=== PATIENT | male | born 1950 | race Caucasian/White ===

== ENCOUNTER 2024-04-17 01:31 | Inpatient (IN) | payer MEDICARE, OTHER ==
[~2024-04-17] VITALS: Ht 175.3 cm; Wt 97.1 kg
[2024-04-17] VITALS (7 sets, daily range): BP systolic 129–137; BP diastolic 70–78; PULSE 87–99; RESP 13–26; TEMP 97.5–97.6; O2SAT 94–97
[~2024-04-17 01:31] MED LIST: AMLO-139 PO; ATOR-429 PO; ELEMENTAL IRON; OMEP40CA21 PO
[2024-04-17 01:55] LABS: BASOPHILS # (AUTO) 0.1 X10'3 (0-0.2); BASOPHILS % (AUTO) 0.6 % (0-1); EOSINOPHILS # (AUTO) 0.1 X10'3 (0-0.9); HEMATOCRIT 38.4 % (42.0-52.0); HEMOGLOBIN 12.5 g/dl (14.0-17.9); LYMPHOCYTES # (AUTO) 1.9 X10'3 (1.1-4.8); LYMPHOCYTES % (AUTO) 18.1 % (21-51); MEAN CORPUSCULAR HEMOGLOBIN 30.3 PG (27.0-31.0); MEAN CORPUSCULAR HGB CONC 32.5 g/dL (33.0-36.5); MEAN CORPUSCULAR VOLUME 93.4 FL (78-98); MEAN PLATELET VOLUME 7.1 FL (7.4-10.4); MONOCYTES % (AUTO) 9.8 % (2-12); NEUTROPHILS # (AUTO) 7.3 X10'3 (1.8-7.7); NEUTROPHILS % (AUTO) 70.5 % (42-75); PLATELET COUNT 367 X10'3 (140-440); RED BLOOD COUNT 4.11 X10'6 (4.70-6.10); RED CELL DISTRIBUTION WIDTH 13.5 % (11.5-14.5); WHITE BLOOD COUNT 10.3 X10'3 (4.5-11.0)
[2024-04-17 02:12] LABS: ALANINE AMINOTRANSFERASE 17 U/L (12-78); ALBUMIN 2.6 G/DL (3.4-5.0); ALBUMIN/GLOBULIN RATIO 0.7 (1.1-1.5); ALKALINE PHOSPHATASE 189 IU/L (46-116); ANION GAP 8 (8-16); ASPARTATE AMINO TRANSFERASE 29 U/L (10-37); BILIRUBIN,TOTAL 0.6 MG/DL (0.1-1.0); BLOOD UREA NITROGEN 22 MG/DL (7-18); BUN/CREATININE RATIO 24.4 (10.0-20.0); CALCIUM 9.1 MG/DL (8.5-10.1); CHLORIDE 101 MMOL/L (99-107); GLUCOSE 113 MG/DL (70-104); POTASSIUM 4.3 MMOL/L (3.5-5.1); SODIUM 135 MMOL/L (135-145); TOTAL CARBON DIOXIDE 26.1 MMOL/L (24-32); TOTAL PROTEIN 6.4 G/DL (6.4-8.2); eCRCL 70 ML/MIN; eGFR 82 ML/MIN
[2024-04-17 02:19] LABS: PRO BRAIN NATRIURETIC PEPTIDE 86 PG/ML (0-450)
[2024-04-17] MEDS: methylPREDNISolone sod succ 125mg/2ml vial IV ONE (02:53)
[2024-04-17] MEDS: CefTRIAXone/D5W-Rocephin 1gm 50 ML IV ONE (03:07)
[2024-04-17] MEDS: ondansetron/PF 4mg/2ml inj IV ONE (03:23)
[2024-04-17] MEDS: azithromycin/NS 500mg/250ml 250 ML IV ONE (03:23)
[2024-04-17] MEDS: ipratropium/albuterol 3ml nebule NEB ONE (03:40)
[2024-04-17] MEDS ORDERED: AMLO-140 PO (05:50)
[2024-04-17] MEDS: normal saline 1000ml 1,000 ML IV ONE (05:52)
[2024-04-17] MEDS ORDERED: magnesium Cl slow-release 64mg tablet PO PRN (05:55)
[2024-04-17] MEDS ORDERED: albuterol 2.5 MG/3 ML nebule NEB PRN (05:55)
[2024-04-17] MEDS ORDERED: magnesium sulf-water 4G/100mL 100 ML IV PRN (05:55)
[2024-04-17] MEDS ORDERED: acetaminophen 325mg tablet PO PRN ×2 (05:55)
[2024-04-17] MEDS ORDERED: magnesium hydroxide 30ml (MOM) UD suspension PO PRN (05:55)
[2024-04-17] MEDS ORDERED: mag hydrox/Alum hydrox/simeth 30ml oral suspension PO PRN (05:55)
[2024-04-17] MEDS ORDERED: HYDROcodone/acetaminophen 10/325mg tab PO PRN (05:55)
[2024-04-17] MEDS ORDERED: magnesium sulf-water 2g/50mL 50 ML IV PRN (05:55)
[2024-04-17] MEDS ORDERED: potassium Cl 20 mEq SR tablet PO PRN ×2 (05:55)
[2024-04-17] MEDS ORDERED: potassium Cl 40MEQ/1/2NS 520ml 520 ML IV PRN (05:55)
[2024-04-17] MEDS: MEROPENEM 1GM/NACL 50ML IVPB 50 ML IV SCH (07:41)
[2024-04-17] MEDS: K and/or MAG REPLACEMENT MC SCH (07:43)
[2024-04-17] MEDS: normal saline 1000ml 1,000 ML IV SCH (08:13)
[2024-04-17 08:28] LABS: APTT 24 SECONDS (22-32); INR 1.1 INR; PROTHROMBIN TIME 11.4 SECONDS (9.0-12.0)
[2024-04-17] MEDS: furosemide 10 MG/1 ML 10ml inj IV ONE (10:59)
[2024-04-17] MEDS: metoclopramide 5 mg/ml inj IV ONE (11:35)
[2024-04-17] MEDS: ipratropium/albuterol 3ml nebule NEB PRN (13:59)
[2024-04-17] MEDS: enoxaparin 40mg/0.4ml syringe SQ SCH (20:17)
[2024-04-18] VITALS (11 sets, daily range): BP systolic 128–146; BP diastolic 68–85; PULSE 81–97; RESP 16–25; TEMP 97.1–98.2; O2SAT 93–98
[2024-04-18] MEDS: MEROPENEM 1GM/NACL 50ML IVPB 50 ML IV SCH (03:19)
[2024-04-18 09:30] LABS: BASOPHILS % (AUTO) 0.1 % (0-1); EOSINOPHILS % (AUTO) 0.2 % (0-6); HEMATOCRIT 34.9 % (42.0-52.0); HEMOGLOBIN 11.5 g/dl (14.0-17.9); LYMPHOCYTES # (AUTO) 0.9 X10'3 (1.1-4.8); LYMPHOCYTES % (AUTO) 6.4 % (21-51); MEAN CORPUSCULAR HEMOGLOBIN 30.4 PG (27.0-31.0); MEAN CORPUSCULAR HGB CONC 32.8 g/dL (33.0-36.5); MEAN CORPUSCULAR VOLUME 92.7 FL (78-98); MEAN PLATELET VOLUME 7.1 FL (7.4-10.4); MONOCYTES # (AUTO) 1.1 X10'3 (0-0.9); MONOCYTES % (AUTO) 7.9 % (2-12); NEUTROPHILS # (AUTO) 11.8 X10'3 (1.8-7.7); NEUTROPHILS % (AUTO) 85.4 % (42-75); PLATELET COUNT 354 X10'3 (140-440); RED BLOOD COUNT 3.76 X10'6 (4.70-6.10); RED CELL DISTRIBUTION WIDTH 13.4 % (11.5-14.5); WHITE BLOOD COUNT 13.8 X10'3 (4.5-11.0)
[2024-04-18 09:31] LABS: APTT 25 SECONDS (22-32); INR 1.1 INR; PROTHROMBIN TIME 11.5 SECONDS (9.0-12.0)
[2024-04-18 09:35] LABS: ALANINE AMINOTRANSFERASE 18 U/L (12-78); ALBUMIN 2.4 G/DL (3.4-5.0); ALBUMIN/GLOBULIN RATIO 0.7 (1.1-1.5); ALKALINE PHOSPHATASE 151 IU/L (46-116); ANION GAP 7 (8-16); ASPARTATE AMINO TRANSFERASE 17 U/L (10-37); BILIRUBIN,TOTAL 0.4 MG/DL (0.1-1.0); BLOOD UREA NITROGEN 27 MG/DL (7-18); BUN/CREATININE RATIO 32.5 (10.0-20.0); CALCIUM 8.3 MG/DL (8.5-10.1); CHLORIDE 105 MMOL/L (99-107); CHOL/HDL RATIO 3.8 (0.00-4.99); CHOLESTEROL 175 MG/DL (0-200); CREATININE 0.83 MG/DL (0.60-1.10); GLUCOSE 121 MG/DL (70-104); HDL CHOLESTEROL 46 MG/DL (35-60); LDL CHOLESTEROL 100 MG/DL (50-100); MAGNESIUM 2.1 MG/DL (1.5-2.4); PHOSPHORUS 3.3 MG/DL (2.3-4.5); POTASSIUM 3.9 MMOL/L (3.5-5.1); SODIUM 141 MMOL/L (135-145); TOTAL CARBON DIOXIDE 29.1 MMOL/L (24-32); TOTAL PROTEIN 5.8 G/DL (6.4-8.2); TRIGLYCERIDES 77 MG/DL (20-135); eCRCL 76 ML/MIN; eGFR 90 ML/MIN
[2024-04-18] MEDS: diatr meglu/diatrizoate 30ml oral sol.-(3 dose) bottle PO SCH ×2 (12:08→15:16)
[2024-04-18] MEDS ORDERED: diatr meglu/diatrizoate 30ml oral sol.-(3 dose) bottle PO SCH (13:11)
[2024-04-18] MEDS ORDERED: iohexol 300mg/ml 100ml inj. ONE (17:31)
[2024-04-18] MEDS: metoclopramide 5 mg/ml inj IV SCH (21:42)
[2024-04-19] VITALS (10 sets, daily range): BP systolic 90–138; BP diastolic 54–80; PULSE 71–103; RESP 10–26; TEMP 96.8–98.7; O2SAT 92–98
[2024-04-19 08:08] LABS: BASOPHILS # (AUTO) 0.1 X10'3 (0-0.2); BASOPHILS % (AUTO) 0.5 % (0-1); EOSINOPHILS # (AUTO) 0.1 X10'3 (0-0.9); EOSINOPHILS % (AUTO) 0.7 % (0-6); HEMATOCRIT 36.3 % (42.0-52.0); HEMOGLOBIN 11.6 g/dl (14.0-17.9); LYMPHOCYTES # (AUTO) 1.2 X10'3 (1.1-4.8); LYMPHOCYTES % (AUTO) 9.9 % (21-51); MEAN CORPUSCULAR HEMOGLOBIN 30.2 PG (27.0-31.0); MEAN CORPUSCULAR HGB CONC 32.1 g/dL (33.0-36.5); MONOCYTES % (AUTO) 8.5 % (2-12); NEUTROPHILS # (AUTO) 9.7 X10'3 (1.8-7.7); NEUTROPHILS % (AUTO) 80.4 % (42-75); PLATELET COUNT 365 X10'3 (140-440); RED BLOOD COUNT 3.86 X10'6 (4.70-6.10); RED CELL DISTRIBUTION WIDTH 13.8 % (11.5-14.5); WHITE BLOOD COUNT 12.1 X10'3 (4.5-11.0)
[2024-04-19] MEDS: levoFLOXACIN-Levaquin 750MG/D5 150 ML IV SCH (08:14)
[2024-04-19] MEDS: lisinopril 20mg tablet PO SCH (08:15)
[2024-04-19] MEDS: amLODIPine 5mg tablet PO SCH (08:16)
[2024-04-19 08:26] LABS: APTT 23 SECONDS (22-32); INR 1.1 INR
[2024-04-19 08:50] LABS: ALANINE AMINOTRANSFERASE 14 U/L (12-78); ALBUMIN 2.3 G/DL (3.4-5.0); ALBUMIN/GLOBULIN RATIO 0.7 (1.1-1.5); ALKALINE PHOSPHATASE 149 IU/L (46-116); ANION GAP 7 (8-16); ASPARTATE AMINO TRANSFERASE 21 U/L (10-37); BILIRUBIN,TOTAL 0.4 MG/DL (0.1-1.0); BLOOD UREA NITROGEN 25 MG/DL (7-18); BUN/CREATININE RATIO 30.9 (10.0-20.0); CALCIUM 8.2 MG/DL (8.5-10.1); CHLORIDE 105 MMOL/L (99-107); CREATININE 0.81 MG/DL (0.60-1.10); GLUCOSE 95 MG/DL (70-104); MAGNESIUM 2.3 MG/DL (1.5-2.4); PHOSPHORUS 3.5 MG/DL (2.3-4.5); POTASSIUM 4.6 MMOL/L (3.5-5.1); SODIUM 140 MMOL/L (135-145); TOTAL CARBON DIOXIDE 27.9 MMOL/L (24-32); TOTAL PROTEIN 5.8 G/DL (6.4-8.2); eCRCL 78 ML/MIN; eGFR > 90 ML/MIN
[2024-04-19] MEDS: furosemide 40mg/4ml inj IV SCH (09:31)
[2024-04-19] MEDS: lactose-reduced food (Ensure Enlive) - 237ml bottle PO SCH (13:00)
[2024-04-19] MEDS: ondansetron/PF 4mg/2ml inj IV PRN (23:06)
[2024-04-20] VITALS (14 sets, daily range): BP systolic 80–110; BP diastolic 50–75; PULSE 81–109; RESP 12–20; TEMP 97.4–97.7; O2SAT 93–97
[2024-04-20 06:55] LABS: BASOPHILS # (AUTO) 0.1 X10'3 (0-0.2); BASOPHILS % (AUTO) 0.5 % (0-1); EOSINOPHILS # (AUTO) 0.1 X10'3 (0-0.9); EOSINOPHILS % (AUTO) 0.6 % (0-6); HEMOGLOBIN 12.5 g/dl (14.0-17.9); LYMPHOCYTES # (AUTO) 1.3 X10'3 (1.1-4.8); LYMPHOCYTES % (AUTO) 10.6 % (21-51); MEAN CORPUSCULAR HEMOGLOBIN 30.5 PG (27.0-31.0); MEAN CORPUSCULAR VOLUME 95.4 FL (78-98); MEAN PLATELET VOLUME 7.2 FL (7.4-10.4); MONOCYTES # (AUTO) 1.1 X10'3 (0-0.9); MONOCYTES % (AUTO) 9.1 % (2-12); NEUTROPHILS # (AUTO) 9.6 X10'3 (1.8-7.7); NEUTROPHILS % (AUTO) 79.2 % (42-75); PLATELET COUNT 313 X10'3 (140-440); RED BLOOD COUNT 4.09 X10'6 (4.70-6.10); RED CELL DISTRIBUTION WIDTH 13.9 % (11.5-14.5); WHITE BLOOD COUNT 12.2 X10'3 (4.5-11.0)
[2024-04-20 07:12] LABS: APTT 26 SECONDS (22-32); INR 1.1 INR; PROTHROMBIN TIME 11.6 SECONDS (9.0-12.0)
[2024-04-20 09:18] LABS: BFSOURCE PLEURAL FLD
[2024-04-20 09:20] LABS: GLUCOSE,BODY FLUID 45 MG/DL; LDH,BODY FLUID 240 U/L; TOTAL PROTEIN,BODY FLUID 3.6 G/DL
[2024-04-20 09:59] LABS: ALANINE AMINOTRANSFERASE 19 U/L (12-78); ALBUMIN 2.5 G/DL (3.4-5.0); ALBUMIN/GLOBULIN RATIO 0.7 (1.1-1.5); ALKALINE PHOSPHATASE 163 IU/L (46-116); ANION GAP 9 (8-16); ASPARTATE AMINO TRANSFERASE 24 U/L (10-37); BILIRUBIN,TOTAL 0.5 MG/DL (0.1-1.0); BLOOD UREA NITROGEN 31 MG/DL (7-18); BUN/CREATININE RATIO 29.8 (10.0-20.0); CALCIUM 8.6 MG/DL (8.5-10.1); CHLORIDE 103 MMOL/L (99-107); CREATININE 1.04 MG/DL (0.60-1.10); GLUCOSE 102 MG/DL (70-104); MAGNESIUM 2.5 MG/DL (1.5-2.4); PHOSPHORUS 3.6 MG/DL (2.3-4.5); POTASSIUM 4.3 MMOL/L (3.5-5.1); SODIUM 140 MMOL/L (135-145); TOTAL CARBON DIOXIDE 27.7 MMOL/L (24-32); TOTAL PROTEIN 6.1 G/DL (6.4-8.2); eCRCL 60 ML/MIN; eGFR 69 ML/MIN
[2024-04-20 10:05] LABS: BFAPPEAR HAZY; BFCOLOR YELLOW; BFSOURCE PLEURAL FLD; BFVOLUME 32 ML
[2024-04-20 10:06] LABS: BF MESOTHELIAL CELLS MODERATE; BF RBC COUNT 395 /CU MM; BF WBC COUNT 651 /CU MM (0-1000); LYMPHOCYTES,BODY FLUID 1 %; MONOCYTES,BODY FLUID 15 %; NEUTROPHILS,BODY FLUID 84 %
[2024-04-20] MEDS ORDERED: FURO40TA4 PO (17:04)
[2024-04-20] MEDS ORDERED: LEVO750T68 PO (17:07)
[2024-04-20] MEDS ORDERED: ALBU8HFA INH (19:44)
== END 2024-04-20 17:45 | disposition home or self-care (01) | DRG 177 ==
LOC: ER 01:32 → UNDOADMIN 05:51 → ED HOLD 05:51 → PCU 3S 18:30
PROVIDERS: ADMIT Internal Medicine; ATTEND Internal Medicine
PROC: BW251ZZ Computerized Tomography (CT Scan) of Chest, Abdomen and Pelvis using Low Osmolar Contrast (ICD-10-PCS; 2024-04-18)
PROC: 0W9B3ZZ Drainage of Left Pleural Cavity, Percutaneous Approach (ICD-10-PCS; principal; 2024-04-20)
PROC: 0W993ZZ Drainage of Right Pleural Cavity, Percutaneous Approach (ICD-10-PCS; 2024-04-20)
DX: J15.69 Pneumonia due to other Gram-negative bacteria (principal); I50.33 Acute on chronic diastolic (congestive) heart failure; J96.01 Acute respiratory failure with hypoxia; C15.9 Malignant neoplasm of esophagus, unspecified; K56.7 Ileus, unspecified; J91.8 Pleural effusion in other conditions classified elsewhere; R18.8 Other ascites; I31.39 Other pericardial effusion (noninflammatory); Z20.822 Contact with and (suspected) exposure to COVID-19; I95.9 Hypotension, unspecified; E78.5 Hyperlipidemia, unspecified; Z79.899 Other long term (current) drug therapy
CPT/HCPCS: 32555; 36415; 71045; 71260; 74177; 80053; 80061; 82945; 83036; 83605; 83615; 83735; 83880; 83986; 84100; 84132; 84145; 84157; 84484; 85025; 85610; 85730; 87040; 87070; 87075; 87081; 87502; 87503; 87811; 89051; 93005; 93306; 94640; 94760; 97116; 97161; 97530; 99291; A4615; A6213; C1758; G0378; J0456; J0696; J1650; J1940; J1956; J2185; J2405; J2765; J2919; J7030; Q9963; Q9967

== ENCOUNTER 2024-05-03 09:54 | Emergency (ER) | payer MEDICARE, OTHER ==
[~2024-05-03] VITALS: Ht 175.3 cm; Wt 100.0 kg
[~2024-05-03 09:54] MED LIST changes: +ALBU8HFA INH; -AMLO-139 PO; +AMLO-140 PO; +FURO40TA4 PO; -OMEP40CA21 PO
[2024-05-03 10:23] LABS: BASOPHILS % (AUTO) 0.2 % (0-1); EOSINOPHILS % (AUTO) 0.1 % (0-6); HEMATOCRIT 46.8 % (42.0-52.0); HEMOGLOBIN 15.1 g/dl (14.0-17.9); LYMPHOCYTES # (AUTO) 1.1 X10'3 (1.1-4.8); MEAN CORPUSCULAR HEMOGLOBIN 29.6 PG (27.0-31.0); MEAN CORPUSCULAR HGB CONC 32.4 g/dL (33.0-36.5); MEAN CORPUSCULAR VOLUME 91.4 FL (78-98); MEAN PLATELET VOLUME 7.5 FL (7.4-10.4); MONOCYTES # (AUTO) 0.9 X10'3 (0-0.9); NEUTROPHILS # (AUTO) 16.7 X10'3 (1.8-7.7); NEUTROPHILS % (AUTO) 88.7 % (42-75); PLATELET COUNT 448 X10'3 (140-440); RED BLOOD COUNT 5.11 X10'6 (4.70-6.10); RED CELL DISTRIBUTION WIDTH 14.5 % (11.5-14.5); WHITE BLOOD COUNT 18.8 X10'3 (4.5-11.0)
[2024-05-03 10:48] LABS: PLATELET ESTIMATE INCREASED; TOTAL CELLS COUNTED 100
[2024-05-03 10:49] LABS: ALBUMIN 2.2 G/DL (3.4-5.0); ANION GAP 15 (8-16); BLOOD UREA NITROGEN 56 MG/DL (7-18); BUN/CREATININE RATIO 30.4 (10.0-20.0); CALCIUM 8.9 MG/DL (8.5-10.1); CHLORIDE 96 MMOL/L (99-107); CREATININE 1.84 MG/DL (0.60-1.10); GLUCOSE 110 MG/DL (70-104); POTASSIUM 4.1 MMOL/L (3.5-5.1); PRO BRAIN NATRIURETIC PEPTIDE 1431 PG/ML (0-450); SODIUM 136 MMOL/L (135-145); TOTAL CARBON DIOXIDE 25.1 MMOL/L (24-32); eCRCL 34 ML/MIN; eGFR 36 ML/MIN
[2024-05-03] MEDS: ondansetron/PF 4mg/2ml inj IV ONE (12:20)
[2024-05-03] MEDS: ketorolac trometh 15mg/ml vial 15 MG/ML ML IV ONE (12:20)
[2024-05-03] MEDS: ringers solution, lacted 1,000 ML IV ONE (12:22)
[2024-05-03] MEDS ORDERED: iohexol 300mg/ml 100ml inj. ONE (12:34)
[2024-05-03 16:18] VITALS: TEMP 96.8
[2024-05-03] MEDS ORDERED: ONDA-243 PO (17:31)
[2024-05-03 17:41] VITALS: BP 101/53; PULSE 106; RESP 20; O2SAT 93
== END 2024-05-03 17:54 | disposition home or self-care (01) ==
LOC: ER 09:55
DX: J90 Pleural effusion, not elsewhere classified (principal); C15.9 Malignant neoplasm of esophagus, unspecified; Z79.01 Long term (current) use of anticoagulants; Z86.711 Personal history of pulmonary embolism; Z20.822 Contact with and (suspected) exposure to COVID-19
CPT/HCPCS: 36415; 71046; 74177; 80048; 83605; 83880; 84484; 85007; 85025; 87040; 87502; 87503; 87811; 93005; 96361; 96374; 96375; 99285; A4615; J1885; J2405; J7120; Q9967

== ENCOUNTER 2024-05-04 05:39 | Inpatient (IN) | payer OTHER, MEDICARE ==
[~2024-05-04] VITALS: Ht 175.3 cm; Wt 110.0 kg
[2024-05-04] VITALS (17 sets, daily range): BP systolic 96–114; BP diastolic 60–77; PULSE 19–111; RESP 14–23; TEMP 97.4–99; O2SAT 92–98
[~2024-05-04 05:39] MED LIST changes: +ONDA-243 PO
[2024-05-04] MEDS ORDERED: pantoprazole 40mg IV 80 MG in normal saline 100ml IV soln 100 ML IV ONE (05:45)
[2024-05-04] MEDS: normal saline 1000ML IV soln IVB ONE (06:08)
[2024-05-04] MEDS: pantoprazole 40 MG vial IV ONE (06:14)
[2024-05-04] MEDS: normal saline 1000ml 1,000 ML IV ONE (06:15)
[2024-05-04 06:17] LABS: BASOPHILS % (AUTO) 0 % (0-1); EOSINOPHILS % (AUTO) 0 % (0-6); HEMATOCRIT 25.5 % (42.0-52.0); HEMOGLOBIN 8.1 g/dl (14.0-17.9); LYMPHOCYTES # (AUTO) 0.8 X10'3 (1.1-4.8); LYMPHOCYTES % (AUTO) 6.9 % (21-51); MEAN CORPUSCULAR HEMOGLOBIN 29.3 PG (27.0-31.0); MEAN CORPUSCULAR HGB CONC 31.9 g/dL (33.0-36.5); MEAN CORPUSCULAR VOLUME 91.8 FL (78-98); MEAN PLATELET VOLUME 6.9 FL (7.4-10.4); MONOCYTES # (AUTO) 0.7 X10'3 (0-0.9); MONOCYTES % (AUTO) 5.7 % (2-12); NEUTROPHILS # (AUTO) 10.5 X10'3 (1.8-7.7); NEUTROPHILS % (AUTO) 87.4 % (42-75); PLATELET COUNT 248 X10'3 (140-440); RED BLOOD COUNT 2.77 X10'6 (4.70-6.10); RED CELL DISTRIBUTION WIDTH 14.6 % (11.5-14.5)
[2024-05-04 06:26] LABS: APTT 44 SECONDS (22-32); INR 3.3 INR; PROTHROMBIN TIME 31.7 SECONDS (9.0-12.0)
[2024-05-04 07:31] LABS: ALBUMIN 1.8 G/DL (3.4-5.0); ANION GAP 14 (8-16); BLOOD UREA NITROGEN 75 MG/DL (7-18); BUN/CREATININE RATIO 30.2 (10.0-20.0); CALCIUM 7.8 MG/DL (8.5-10.1); CHLORIDE 99 MMOL/L (99-107); CREATININE 2.48 MG/DL (0.60-1.10); GLUCOSE 118 MG/DL (70-104); LIPASE 29 U/L (16-77); MAGNESIUM 2.6 MG/DL (1.5-2.4); SODIUM 137 MMOL/L (135-145); TOTAL CARBON DIOXIDE 23.8 MMOL/L (24-32); eCRCL 25 ML/MIN; eGFR 25 ML/MIN
[2024-05-04 07:50] LABS: POTASSIUM 4.2 MMOL/L (3.5-5.1)
[2024-05-04 07:59] LABS: ETHANOL < 10 MG/DL (<10)
[2024-05-04] MEDS: CefTRIAXone 2gm/D5W 50ml BAG 50 ML IV ONE (09:02)
[2024-05-04] MEDS: pantoprazole 40MG/NS 100ML BAG 100 ML IV STA (09:24)
[2024-05-04 09:43] LABS: PROTHROMBIN TIME 20.1 SECONDS (9.0-12.0)
[2024-05-04 09:45] LABS: HEMATOCRIT 38.8 % (42.0-52.0); HEMOGLOBIN 12.5 g/dl (14.0-17.9); MEAN CORPUSCULAR HEMOGLOBIN 29.8 PG (27.0-31.0); MEAN CORPUSCULAR HGB CONC 32.3 g/dL (33.0-36.5); MEAN CORPUSCULAR VOLUME 92.5 FL (78-98); MEAN PLATELET VOLUME 7.2 FL (7.4-10.4); PLATELET COUNT 344 X10'3 (140-440); RED CELL DISTRIBUTION WIDTH 15.1 % (11.5-14.5); WHITE BLOOD COUNT 17.6 X10'3 (4.5-11.0)
[2024-05-04 09:46] LABS: ALBUMIN 1.6 G/DL (3.4-5.0); ANION GAP 15 (8-16); BLOOD UREA NITROGEN 74 MG/DL (7-18); CALCIUM 7.4 MG/DL (8.5-10.1); CHLORIDE 97 MMOL/L (99-107); CREATININE 2.47 MG/DL (0.60-1.10); GLUCOSE 172 MG/DL (70-104); POTASSIUM 4.1 MMOL/L (3.5-5.1); SODIUM 137 MMOL/L (135-145); TOTAL CARBON DIOXIDE 25.4 MMOL/L (24-32); eCRCL 25 ML/MIN; eGFR 26 ML/MIN
[2024-05-04] MEDS ORDERED: potassium Cl 20 mEq SR tablet PO PRN ×2 (10:00)
[2024-05-04] MEDS ORDERED: acetaminophen 325mg tablet PO PRN (10:00)
[2024-05-04] MEDS ORDERED: magnesium sulf-water 4G/100mL 100 ML IV PRN (10:00)
[2024-05-04] MEDS ORDERED: magnesium Cl slow-release 64mg tablet PO PRN (10:00)
[2024-05-04] MEDS ORDERED: magnesium sulf-water 2g/50mL 50 ML IV PRN (10:00)
[2024-05-04] MEDS ORDERED: potassium Cl 40MEQ/1/2NS 520ml 520 ML IV PRN (10:00)
[2024-05-04] MEDS: normal saline 1000ml 1,000 ML IV SCH (10:56)
[2024-05-04] MEDS: pantoprazole 40MG/NS 100ML BAG 100 ML IV SCH (11:00)
[2024-05-04] MEDS ORDERED: fentaNYL/PF 50MCG/1 ML 2ML syringe ONE (12:03)
[2024-05-04] MEDS ORDERED: succinylcholine 20mg/ml inj IV ONE (12:04)
[2024-05-04] MEDS ORDERED: rocuronium 10mg/ml inj IV ONE (12:04)
[2024-05-04] MEDS ORDERED: sugammadex 200mg/2ml injection IV ONE (12:04)
[2024-05-04] MEDS ORDERED: ondansetron/PF 4mg/2ml inj ONE (12:04)
[2024-05-05] VITALS (7 sets, daily range): BP systolic 87–111; BP diastolic 46–74; PULSE 98–110; RESP 16–26; TEMP 97–98.3; O2SAT 93–95
[2024-05-05] MEDS: acetaminophen 325mg tablet PO PRN (03:26)
[2024-05-05] MEDS: HYDROcodone/acetaminophen 5mg/325mg tablet PO PRN ×2 (07:08→14:01)
[2024-05-05] MEDS: atorvastatin 20mg tablet PO SCH (07:09)
[2024-05-05 07:42] LABS: BASOPHILS % (AUTO) 0.2 % (0-1); EOSINOPHILS % (AUTO) 0.2 % (0-6); HEMATOCRIT 38.9 % (42.0-52.0); HEMOGLOBIN 12.5 g/dl (14.0-17.9); INR 1.5 INR; LYMPHOCYTES # (AUTO) 0.9 X10'3 (1.1-4.8); LYMPHOCYTES % (AUTO) 5.1 % (21-51); MEAN CORPUSCULAR HGB CONC 32.1 g/dL (33.0-36.5); MEAN CORPUSCULAR VOLUME 93.4 FL (78-98); MEAN PLATELET VOLUME 7.4 FL (7.4-10.4); MONOCYTES # (AUTO) 0.7 X10'3 (0-0.9); NEUTROPHILS # (AUTO) 16.5 X10'3 (1.8-7.7); NEUTROPHILS % (AUTO) 90.5 % (42-75); PLATELET COUNT 378 X10'3 (140-440); PROTHROMBIN TIME 15.2 SECONDS (9.0-12.0); RED BLOOD COUNT 4.17 X10'6 (4.70-6.10); RED CELL DISTRIBUTION WIDTH 14.5 % (11.5-14.5); WHITE BLOOD COUNT 18.2 X10'3 (4.5-11.0)
[2024-05-05 07:56] LABS: ALANINE AMINOTRANSFERASE 42 U/L (12-78); ALBUMIN 1.6 G/DL (3.4-5.0); ALBUMIN/GLOBULIN RATIO 0.5 (1.1-1.5); ANION GAP 10 (8-16); ASPARTATE AMINO TRANSFERASE 66 U/L (10-37); BILIRUBIN,TOTAL 1.3 MG/DL (0.1-1.0); BLOOD UREA NITROGEN 90 MG/DL (7-18); BUN/CREATININE RATIO 26.8 (10.0-20.0); CALCIUM 7.5 MG/DL (8.5-10.1); CHLORIDE 102 MMOL/L (99-107); CREATININE 3.36 MG/DL (0.60-1.10); GLUCOSE 102 MG/DL (70-104); POTASSIUM 4.7 MMOL/L (3.5-5.1); SODIUM 135 MMOL/L (135-145); TOTAL CARBON DIOXIDE 22.7 MMOL/L (24-32); TOTAL PROTEIN 5.1 G/DL (6.4-8.2); eCRCL 19 ML/MIN; eGFR 18 ML/MIN
[2024-05-05 08:28] LABS: ALKALINE PHOSPHATASE 1056 IU/L (46-116)
[2024-05-05] MEDS: apixaban 5mg tablet PO SCH (10:41)
[2024-05-05 10:50] LABS: BASOPHILS # (AUTO) 0.1 X10'3 (0-0.2); BASOPHILS % (AUTO) 0.4 % (0-1); EOSINOPHILS # (AUTO) 0.2 X10'3 (0-0.9); EOSINOPHILS % (AUTO) 0.9 % (0-6); HEMATOCRIT 38.4 % (42.0-52.0); HEMOGLOBIN 12.5 g/dl (14.0-17.9); LYMPHOCYTES % (AUTO) 5.1 % (21-51); MEAN CORPUSCULAR HEMOGLOBIN 30.5 PG (27.0-31.0); MEAN CORPUSCULAR HGB CONC 32.5 g/dL (33.0-36.5); MEAN CORPUSCULAR VOLUME 93.9 FL (78-98); MEAN PLATELET VOLUME 7.5 FL (7.4-10.4); MONOCYTES # (AUTO) 0.6 X10'3 (0-0.9); MONOCYTES % (AUTO) 3.3 % (2-12); NEUTROPHILS # (AUTO) 17.8 X10'3 (1.8-7.7); NEUTROPHILS % (AUTO) 90.3 % (42-75); PLATELET COUNT 337 X10'3 (140-440); RED BLOOD COUNT 4.09 X10'6 (4.70-6.10); RED CELL DISTRIBUTION WIDTH 15.5 % (11.5-14.5); WHITE BLOOD COUNT 19.7 X10'3 (4.5-11.0)
[2024-05-05 11:40] LABS: BILIRUBIN,URINE SMALL (Neg); CLARITY,URINE SLIGHTLY CLOUDY (Clear); COLOR,URINE YELLOW (Yellow); GLUCOSE, URINE NEGATIVE (Neg); KETONES,URINE NEGATIVE (Neg); LEUKOCYTE ESTERASE ,URINE TRACE (Neg); NITRITES, URINE NEGATIVE (Neg); OCCULT BLOOD,URINE NEGATIVE (Neg); PROTEIN,URINE 30 mg/dl (Neg); UROBILINOGEN,URINE 0.2 E.U/dL (0.2-1.0)
[2024-05-05 11:45] LABS: UA COLLECTION TYPE VOIDED
[2024-05-05 11:46] LABS: BACTERIA,URINE FEW /HPF (Neg); MUCUS STRANDS NONE SEEN /LPF (Neg); RBC,URINE NONE SEEN /HPF (0-2); SQUAMOUS EPITHELIAL CELL,UR FEW /LPF (FEW); WBC,URINE 0-4 /HPF (0-4)
[2024-05-05 11:56] LABS: SODIUM,URINE RANDOM < 15 MEQ/L
[2024-05-05 12:11] LABS: UA EOSINOPHILS NO EOS /HPF; YEAST FEW /HPF (NEGATIVE)
[2024-05-05 12:20] LABS: OSMOLALITY UA 377 MOSM/K (50-1400)
[2024-05-05 15:11] LABS: HEMATOCRIT 36.3 % (42.0-52.0); HEMOGLOBIN 11.6 g/dl (14.0-17.9); MEAN CORPUSCULAR HEMOGLOBIN 29.7 PG (27.0-31.0); MEAN CORPUSCULAR HGB CONC 31.9 g/dL (33.0-36.5); MEAN CORPUSCULAR VOLUME 92.9 FL (78-98); MEAN PLATELET VOLUME 7.4 FL (7.4-10.4); PLATELET COUNT 390 X10'3 (140-440); RED CELL DISTRIBUTION WIDTH 15.4 % (11.5-14.5); WHITE BLOOD COUNT 18.4 X10'3 (4.5-11.0)
[2024-05-05 17:44] LABS: HEMATOCRIT 39.4 % (42.0-52.0); HEMOGLOBIN 12.4 g/dl (14.0-17.9); MEAN CORPUSCULAR HEMOGLOBIN 30.4 PG (27.0-31.0); MEAN CORPUSCULAR HGB CONC 31.5 g/dL (33.0-36.5); MEAN CORPUSCULAR VOLUME 96.7 FL (78-98); MEAN PLATELET VOLUME 7.3 FL (7.4-10.4); PLATELET COUNT 358 X10'3 (140-440); RED BLOOD COUNT 4.08 X10'6 (4.70-6.10); RED CELL DISTRIBUTION WIDTH 15.7 % (11.5-14.5); WHITE BLOOD COUNT 19.5 X10'3 (4.5-11.0)
[2024-05-05] MEDS: pantoprazole 40 MG vial IV SCH (19:37)
[2024-05-05 19:41] LABS: BASOPHILS % (AUTO) 0.1 % (0-1); EOSINOPHILS % (AUTO) 0.2 % (0-6); HEMATOCRIT 36.4 % (42.0-52.0); HEMOGLOBIN 11.8 g/dl (14.0-17.9); LYMPHOCYTES % (AUTO) 5.6 % (21-51); MEAN CORPUSCULAR HEMOGLOBIN 30.1 PG (27.0-31.0); MEAN CORPUSCULAR HGB CONC 32.5 g/dL (33.0-36.5); MEAN CORPUSCULAR VOLUME 92.8 FL (78-98); MEAN PLATELET VOLUME 7.2 FL (7.4-10.4); MONOCYTES # (AUTO) 0.8 X10'3 (0-0.9); MONOCYTES % (AUTO) 4.6 % (2-12); NEUTROPHILS # (AUTO) 16.3 X10'3 (1.8-7.7); NEUTROPHILS % (AUTO) 89.5 % (42-75); PLATELET COUNT 377 X10'3 (140-440); RED BLOOD COUNT 3.92 X10'6 (4.70-6.10); RED CELL DISTRIBUTION WIDTH 15.5 % (11.5-14.5); WHITE BLOOD COUNT 18.2 X10'3 (4.5-11.0)
[2024-05-05] MEDS: ondansetron/PF 4mg/2ml inj IV PRN (19:47)
[2024-05-06] VITALS (7 sets, daily range): BP systolic 78–88; BP diastolic 42–49; PULSE 72–87; RESP 16–34; TEMP 96.8–97.1; O2SAT 90–97
[2024-05-06 06:24] LABS: INR 1.7 INR
[2024-05-06 06:28] LABS: BASOPHILS % (AUTO) 0.2 % (0-1); EOSINOPHILS # (AUTO) 0.1 X10'3 (0-0.9); EOSINOPHILS % (AUTO) 0.3 % (0-6); HEMATOCRIT 35.6 % (42.0-52.0); HEMOGLOBIN 11.4 g/dl (14.0-17.9); LYMPHOCYTES % (AUTO) 5.1 % (21-51); MEAN CORPUSCULAR VOLUME 93.7 FL (78-98); MEAN PLATELET VOLUME 7.4 FL (7.4-10.4); MONOCYTES # (AUTO) 0.9 X10'3 (0-0.9); MONOCYTES % (AUTO) 4.7 % (2-12); NEUTROPHILS # (AUTO) 17.1 X10'3 (1.8-7.7); NEUTROPHILS % (AUTO) 89.7 % (42-75); PLATELET COUNT 390 X10'3 (140-440); RED CELL DISTRIBUTION WIDTH 15.6 % (11.5-14.5)
[2024-05-06 06:31] LABS: PROTHROMBIN TIME 17.1 SECONDS (9.0-12.0)
[2024-05-06 07:01] LABS: ALANINE AMINOTRANSFERASE 42 U/L (12-78); ALBUMIN 1.6 G/DL (3.4-5.0); ALBUMIN/GLOBULIN RATIO 0.5 (1.1-1.5); ANION GAP 14 (8-16); ASPARTATE AMINO TRANSFERASE 71 U/L (10-37); BLOOD UREA NITROGEN 99 MG/DL (7-18); BUN/CREATININE RATIO 21.9 (10.0-20.0); CALCIUM 7.5 MG/DL (8.5-10.1); CHLORIDE 102 MMOL/L (99-107); CREATININE 4.52 MG/DL (0.60-1.10); GLUCOSE 105 MG/DL (70-104); LACTATE DEHYDROGENASE 431 U/L (85-227); POTASSIUM 4.9 MMOL/L (3.5-5.1); SODIUM 136 MMOL/L (135-145); TOTAL CARBON DIOXIDE 20.3 MMOL/L (24-32); TOTAL PROTEIN 4.9 G/DL (6.4-8.2); eCRCL 14 ML/MIN; eGFR 13 ML/MIN
[2024-05-06 07:32] LABS: ALKALINE PHOSPHATASE 1147 IU/L (46-116)
[2024-05-06] MEDS: ipratropium/albuterol 3ml nebule NEB PRN (08:10)
[2024-05-06] MEDS: piperacillin/tazo 3.375gm/50ml 50 ML IV SCH (08:15)
[2024-05-06] MEDS: VANCOMYCIN 500MG/WATER FOR INJ (PEG) PREMIX 100 ML IV SCH (09:00)
[2024-05-06] MEDS: normal saline 500ml IV soln 500 ML IV ONE (10:30)
[2024-05-06 11:44] LABS: BASOPHILS % (AUTO) 0.2 % (0-1); EOSINOPHILS % (AUTO) 0.2 % (0-6); HEMATOCRIT 36.3 % (42.0-52.0); HEMOGLOBIN 11.5 g/dl (14.0-17.9); LYMPHOCYTES # (AUTO) 0.8 X10'3 (1.1-4.8); LYMPHOCYTES % (AUTO) 4.4 % (21-51); MEAN CORPUSCULAR HEMOGLOBIN 29.9 PG (27.0-31.0); MEAN CORPUSCULAR HGB CONC 31.6 g/dL (33.0-36.5); MEAN CORPUSCULAR VOLUME 94.5 FL (78-98); MEAN PLATELET VOLUME 7.4 FL (7.4-10.4); MONOCYTES # (AUTO) 0.9 X10'3 (0-0.9); MONOCYTES % (AUTO) 4.9 % (2-12); NEUTROPHILS # (AUTO) 16.3 X10'3 (1.8-7.7); NEUTROPHILS % (AUTO) 90.3 % (42-75); PLATELET COUNT 379 X10'3 (140-440); RED BLOOD COUNT 3.85 X10'6 (4.70-6.10); RED CELL DISTRIBUTION WIDTH 15.5 % (11.5-14.5); WHITE BLOOD COUNT 18.1 X10'3 (4.5-11.0)
[2024-05-06] MEDS ORDERED: piperacillin/tazo 3.375gm/50ml 50 ML IV SCH (13:30)
[2024-05-06] MEDS ORDERED: HYDROcodone/acetaminophen 5mg/325mg tablet PO PRN (13:35)
[2024-05-06] MEDS ORDERED: LORazepam 2 mg/ml vial IV PRN (13:50)
[2024-05-06] MEDS: scopolamine 1MG/72H patch 1 PATCH PATCH.TD.3 TD SCH (15:30)
[2024-05-06] MEDS: morphine 4 MG/ML inj SYRINge IV PRN (15:31)
[2024-05-06] MEDS: ondansetron/PF 4mg/2ml inj IV PRN (15:46)
[2024-05-06] MEDS: morphine 10mg/0.5ml (conc. morphine) oral syringe PO PRN (17:24)
[2024-05-06] MEDS: LORazepam 1 MG tablet PO PRN (20:47)
[2024-05-06] MEDS ORDERED: morphine 10mg/0.5ml (conc. morphine) oral syringe PO PRN (21:10)
[2024-05-06] MEDS ORDERED: morphine 4 MG/ML inj SYRINge IV PRN (21:35)
[2024-05-06] MEDS ORDERED: LORazepam 1 MG tablet PO PRN (22:50)
[2024-05-09] MEDS ORDERED: VANCOMYCIN LEVEL IV ONE (08:30)
== END 2024-05-07 02:47 | DRG 377 ==
LOC: ER 05:40 → ED HOLD 10:04 → PCU 3S 14:14 → SUR 3N 05-06 17:35
PROVIDERS: ADMIT Internal Medicine; ATTEND Internal Medicine
PROC: 30233N1 Transfusion of Nonautologous Red Blood Cells into Peripheral Vein, Percutaneous Approach (ICD-10-PCS; 2024-05-04)
PROC: 0DB68ZX Excision of Stomach, Via Natural or Artificial Opening Endoscopic, Diagnostic (ICD-10-PCS; principal; 2024-05-04 12:08)
DX: K29.71 Gastritis, unspecified, with bleeding (principal); E43 Unspecified severe protein-calorie malnutrition; N17.0 Acute kidney failure with tubular necrosis; C15.9 Malignant neoplasm of esophagus, unspecified; K21.00 Gastro-esophageal reflux disease with esophagitis, without bleeding; K29.80 Duodenitis without bleeding; J44.89 Other specified chronic obstructive pulmonary disease; E11.9 Type 2 diabetes mellitus without complications; E78.5 Hyperlipidemia, unspecified; I10 Essential (primary) hypertension; D64.9 Anemia, unspecified; K26.9 Duodenal ulcer, unspecified as acute or chronic, without hemorrhage or perforation; Z68.35 Body mass index [BMI] 35.0-35.9, adult; Z85.01 Personal history of malignant neoplasm of esophagus; Z86.711 Personal history of pulmonary embolism; Z86.73 Personal history of transient ischemic attack (TIA), and cerebral infarction without residual deficits; Z90.5 Acquired absence of kidney; Z87.891 Personal history of nicotine dependence
CPT/HCPCS: 36415; 36430; 43239; 71045; 80048; 80053; 80320; 81001; 82570; 83605; 83615; 83690; 83735; 83930; 83935; 84145; 84156; 84300; 84484; 84540; 85025; 85027; 85610; 85651; 85730; 86885; 86900; 86901; 86920; 87040; 87077; 87081; 87088; 87186; 87207; 93005; 94640; 94760; 96361; 96365; 96367; 96368; 99285; A4615; A4618; A4620; A6590; G0378; J0330; J0696; J2270; J2405; J2470; J2543; J3010; J3372; J3490; J7030; J7040; P9016